=== PATIENT | female | born 1965 | race Caucasian/White ===

== ENCOUNTER 2017-10-11 14:40 | Emergency (ER) | payer MEDICAID, OTHER ==
[2017-10-11] MEDS: IBUPROFEN 600 MG TAB PO (16:01)
== END 2017-10-11 16:50 | disposition home or self-care (01) ==
LOC: FTE 14:40
DX: S01.111A Laceration without foreign body of right eyelid and periocular area, initial encounter (principal); S09.90XA Unspecified injury of head, initial encounter; W01.0XXA Fall on same level from slipping, tripping and stumbling without subsequent striking against object, initial encounter; Y92.9 Unspecified place or not applicable
CPT/HCPCS: 70486; 99284-25